=== PATIENT | female | born 1985 | race Caucasian/White ===

== ENCOUNTER 2020-12-25 19:27 | Emergency (ER) | payer OTHER, BC, MEDICAID, SELFPAY ==
--- NOTE | ~2020-12-25 | XR_ITS ---
EXAMINATION: XR FINGER, LEFT CLINICAL INFORMATION: Nail through finger COMPARISON: None TECHNIQUE: 3 views of the left ring finger including AP view of the hand FINDINGS: A nail noted overlying the proximal metaphysis of the distal phalanx of the ring finger. The bone is otherwise unremarkable. This likely extends to the bone. The DIP joint is uninvolved. There is soft tissue prominence distal to the nail. The remaining bones joints and soft tissues are unremarkable. A radiodense watch obscures evaluation of the distal radius and ulna and wrist XR/XR finger LT min 2V IMPRESSION: Radiopaque object which appears to reflect a nail overlies appears to extend through the proximal metaphysis of the distal phalanx of the ring finger.
[2020-12-25 19:32] VITALS: BP 159/81; PULSE 96; RESP 22; TEMP 37.3; O2SAT 95; BMI 41.1
--- NOTE | 2020-12-25 19:40 | ED.SKABFB ---
HPI - Skin/Abscess/Foreign Bdy General Chief complaint: Skin/Abscess/Foreign Body Stated complaint: foreign object in finger Time Seen by Provider: 12/25/20 19:38 Source: patient Mode of arrival: ambulatory Limitations: no limitations History of Present Illness HPI narrative: 35-year-old female presents with a nail that went through 4th left her finger. Nail gun accidentally discharged to nail and her hand was in front of it. Unknown when her last Tdap vaccine was given. Patient was unable to pull the nail out of her finger. She does not report any other symptoms at this time. MD complaint: foreign body Onset (ago): hour(s) (Within the hour arrival) Tetanus up to date: unsure Location: L hand (Fourth finger) Severity: severe Severity scale (1-10): 10 Quality: aching Relieving factors: none Exacerbating factors: palpation and movement Associated symptoms: denies other symptoms Related Data Previous Rx's Medication Instructions Recorded amoxicillin 875 mg-potassium 1 tab PO Q12H 10 Days #20 tab 12/25/20 clavulanate 125 mg tablet (Augmentin) Allergies Allergy/AdvReac Type Severity Reaction Status Date / Time codeine Allergy Chest Pain Verified 12/25/20 19:37 Review of Systems Review of Systems: Constitutional: No Fever, No Chills ENT/Mouth: No Ear Pain, No Hoarseness, No sore throat Eyes: No Eye Pain, No Swelling, No Redness, No Foreign Body Cardiovascular: No Chest Pain, No SOB Respiratory: No Cough, No Dyspnea Gastrointestinal: No Nausea, No Vomiting, No Diarrhea, No abdominal Pain Genitourinary: No Dysuria, No Hematuria Musculoskeletal: positive left 4th finger pain with nail through and through, No Myalgias, No Joint Swelling Skin: No Skin lacerations, No rash Neuro: No Weakness, No Numbness, No Paresthesias, No Loss of Consciousness, No Dizziness, No Headache Psych: No Anxiety/Panic, No Depression Heme/Lymph: no easy bruising, no Lymphadenopathy Endocrine: No Polyuria, No Polydipsia Yes all other systems are reviewed and are negative [facility]LY [facility] Past Medical History Attestation statement: The following information was validated with the patient. Source: old records reviewed Social History Social History Advance Directives: No Physical Exam Vital Signs: Vital Signs: Last Vital Signs Temp 99.2 F 12/25/20 19:32 Pulse 67 12/25/20 21:22 Resp 16 12/25/20 21:22 BP 146/80 H 12/25/20 21:22 Pulse Ox 98 12/25/20 21:22 Body Mass Index 41.1 Appearance: Alert. Oriented X3. No acute distress. Eyes: Pupils equal, round and reactive to light. ENT: Pharynx normal. Neck: Normal inspection. Neck supple. CVS: Normal heart rate and rhythm. Pulses normal. Respiratory: No respiratory distress. Breath sounds normal. Abdomen: Soft and nontender. Skin: Skin warm and dry. Normal skin color. Normal skin turgor. Extremities: Nail noted through the left 4th metacarpal. Full range of motion, swelling noted. Neuro: No motor deficit. No sensory deficit. Course Course Course Narrative: 35-year-old female presents with a nail through the tip of her 4th left finger. Digital block completed, I was able to cut the tip of the nail on the palmar aspect of the finger, I did pull the nail through the finger with a tool maker apprentice. X-rays did show after nail cut through the bone of the metatarsal. Will give amoxicillin p.o. for the next 10 days. Patient has full range of motion and brisk capillary refill status post nail removal. Was able to remove her wedding rings without difficulty. Patient will follow-up with primary care. MDM - Skin/Abscess/Foreign Bdy MDM Narrative Medical decision making narrative: Nail puncture through the finger Imaging Data Finger x-ray: Attestation: I personally reviewed and interpreted this imaging study as follows: Radiologist's impression: EXAMINATION: XR FINGER, LEFT CLINICAL INFORMATION: Nail through finger? COMPARISON: None? TECHNIQUE: 3 views of the left ring finger including AP view of the hand FINDINGS: A nail noted overlying the proximal metaphysis of the distal phalanx of the ring finger. The bone is otherwise unremarkable. This likely extends to the bone. The DIP joint is uninvolved. There is soft tissue prominence distal to the nail. ?The remaining bones joints and soft tissues are unremarkable. A radiodense watch obscures evaluation of the distal radius and ulna and wrist XR/XR finger LT min 2V IMPRESSION: Radiopaque object which appears to reflect a nail overlies appears to extend through the proximal metaphysis of the distal phalanx of the ring finger. Procedures Foreign Body Removal Site: left (Fourth finger) Description of foreign body: other (Nail) Sedation/Analgesia: other (Digital block) Technique: removal with forceps Confirmed by:: direct visualization Complications: none Neurovascular: normal capillary fill and no signs of compartment syndrome Nerve Block Nerve Block 1: Local Anesthetic: lidocaine 2% Amount of anesthesia used (mL): 4 Side: left Nerve Blocks: digital Procedure Successful: Yes Patient Tolerated Procedure: well and no complications Complications: none Discharge Plan Discharge Clinical Impression: Injury of finger by nail gun, Foreign body finger Patient Disposition: Home, Self-Care Instructions: Puncture Wound (ED) Additional Instructions: You were evaluated for nail gun injury. We were able to pull the nail out of her finger, however a nail went through the bone of the finger. Please take Augmentin twice a day for the next 10 days. Monitor for signs and symptoms of infection. If you were to develop any signs of infection please return to the emergency department immediately. We updated her Tdap vaccine today. Thank you for choosing this emergency department for evaluation. Please follow-up with primary care physician as needed. Return to the emergency department for any new, concerning, or worsening symptoms. Prescriptions: New amoxicillin-pot clavulanate [Augmentin] 875-125 mg tablet 1 tab PO Q12H 10 Days Qty: 20 RF: 0 Referrals: Mellisa Cabezas PA-C [Physician Collection Manager] - 2 days (Nail through ring finger) Interventions: ED Discharge Assessment Last Done: 12/25/20 21:22 Discharge Date/Time: 12/25/20 21:23
[2020-12-25] MEDS: Lidocaine HCl 2 % MPF 5 ML VIAL 10 ML SUBCUT (19:54)
[2020-12-25] MEDS: Amoxicillin/Potassium Clav 875 MG TABLET PO (20:11)
[2020-12-25] MEDS: Diphth,Pertus(ACell),Tet Adult 0.5 ML SYRINGE IM (20:11)
[2020-12-25 21:22] VITALS: BP 146/80; PULSE 67; RESP 16; O2SAT 98
== END 2020-12-25 21:23 | disposition home or self-care (01) ==
PROVIDERS: Emergency Provider Internal Medicine
DX: S61.245A Puncture wound with foreign body of left ring finger without damage to nail, initial encounter (principal); W45.0XXA Nail entering through skin, initial encounter; W29.4XXA Contact with nail gun, initial encounter; Y93.9 Activity, unspecified; Y92.9 Unspecified place or not applicable; Y99.9 Unspecified external cause status
CPT/HCPCS: 64450; 73140; 90471; 90715; 99283; 99284

== ENCOUNTER 2022-07-11 08:27 | Outpatient (REF) | payer OTHER, MEDICAID, SELFPAY ==
--- NOTE | ~2022-07-11 | MM_ITS ---
EXAMINATION: MM DIAGNOSTIC DIGITAL BREAST TOMOSYNTHESIS, BILATERAL US DIAGNOSTIC ULTRASOUND BREAST, RIGHT CLINICAL INFORMATION: 36-year-old with months history right breast pain. Palpable areas noted on clinical exam right breast. The lifetime risk of breast cancer based on the Tyrer-Cuzick Model is 15%. COMPARISON: Outside mammography: 01/05/2019 ([facility], [place], [place]). TECHNIQUE: Digital breast tomosynthesis is performed in both the craniocaudal and mediolateral oblique views along with computer-aided detection (CAD). Synthesized 2D images are generated from the tomosynthesis. Ultrasound right breast is targeted to the areas of clinical concern. Patient is able to point to the areas of symptoms at time of imaging. Grayscale imaging and color Doppler are performed without and with harmonics. FINDINGS: The breasts are almost entirely fatty (ACR BI-RADS breast composition Category a). Background stromal markings are stable. No developing density or architectural abnormality. There are no significant masses, abnormal calcifications, or other abnormalities. The axilla are unremarkable. Skin contours are smooth. There is no skin thickening or coarsening of the Trevor's ligaments. No significant changes. Ultrasound demonstrates no cystic or solid mass, architectural abnormality, or focal duct ectasia. No skin thickening or edema tracking in the soft tissue planes. Results are discussed with the patient at time of visit. MM/MM tomosynthesis diagnostic BI IMPRESSION: 1. No mammographic evidence of malignancy or inflammatory changes. 2. Unremarkable targeted right breast ultrasound. ASSESSMENT: BI-RADS 1: Negative RECOMMENDATION: 1. Patient should be managed based on the clinical impression. 2. Otherwise, routine annual screening mammography, beginning age 40, or earlier as clinical risk factors warrant. This patient's information was entered into a reminder system with a target due date for their next mammogram.
== END 2022-07-11 08:28 | disposition home or self-care (01) ==
LOC: HO.MAMMO 08:27
PROVIDERS: PCP Internal Medicine; Visit Provider Physician Assistant Medical
DX: N64.4 Mastodynia (principal)
CPT/HCPCS: 76642; 77062; 77066

== ENCOUNTER 2022-12-19 12:58 | Outpatient (AMB) | payer OTHER, MEDICAID, SELFPAY ==
--- NOTE | 2022-12-19 13:06 | MHC.PC.OV ---
Vital Signs 12/19/22 13:08 Height 5 ft 4 in Weight 247 lb BMI 42.4 BP 122/90 H Blood Pressure Location Rt brachial Position Sitting Pulse 72 Pulse Source Pulse Oximeter Pulse Oximetry (%) 97 Oxygen Delivery Method Room Air Intake Visit Reasons: annual Intake Note: Patient states she is over due for a pap. Allergies codeine Allergy (Verified 12/19/22 13:09) Chest Pain Tobacco use date assessed: 12/19/22 HPI annual HPI Details Pt presents for PE. PFSH Surgical History Hx of appendectomy S/P cholecystectomy Family History Father Hypertension High cholesterol Mother Hypertension Diabetes Paternal Grandfather Colon cancer Paternal Grandmother Kidney disease Maternal Grandmother Leukemia Maternal Aunt Breast cancer Ovarian cancer Maternal Aunt Breast cancer Brother Substance use disorder Social History Household Members Other:: , 2 children in college, exercise 2 x a week Housing: House Patient Tobacco Use Status: Former Tobacco user (10 years ago) e-Cigarette/Vaping Use: Never Used Current occupational status: employed Cognitive needs: No Hearing needs: No Vision needs: Yes Questionnaire Thrive Questionnaire Date Thrive assessed: 12/15/21 WILLIE-7 AMB Questionnaire WILLIE-7 Date WILLIE - 7 assessed: 12/15/21 Source: Developed by Drs. Minor Avalos, Kim Valentin, Alvaro De La Torre and colleagues, with an educational yuliya from [employer]. Review of Systems Const All systems reviewed & are unremarkable except as noted in HPI and below Reports no additional complaints Eyes Reports no additional complaints ENT Reports no additional complaints Card Reports no additional complaints Resp Reports no additional complaints GI Reports no additional complaints Reports no additional complaints Physical exam (Primary Care) Vital Signs: Last Vital Signs Pulse 72 12/19/22 13:08 BP 122/90 H 12/19/22 13:08 Pulse Ox 97 12/19/22 13:08 Oxygen Delivery Method Room Air 12/19/22 13:08 BMI result Body Mass Index 42.4 Tobacco/Smoking Status: Tobacco use Status Tobacco use date assessed 12/19/22 12/19/22 13:12 Patient Tobacco Use Status Former Tobacco user (12/19/22 13:12 years ago) e-Cigarette/Vaping Use Never Used 12/19/22 13:12 Thrive Assessment: Date of Thrive Assessment Date Thrive assessed 12/15/21 12/19/22 13:12 Const General: no acute distress HENMT Head: Yes normal to inspection Ears: hearing grossly normal bilaterally General nose exam: Normal external nose present Face and sinus: Yes normal facial exam Mouth: Normal oral and palatal mucosa present Throat: Yes posterior oropharynx normal Eyes General: appearance normal, both eyes and all related structures Neck Neck: Yes no lymphadenopathy and Yes supple Resp Effort & Inspection: normal respiratory effort Auscultation: clear to auscultation bilaterally Cardio Rhythm: regular rhythm Heart sounds: S1 normal heart sound present and S2 normal heart sound present GI Inspection: Yes normal to inspection Palpation (GI): Soft to palpation Percussion: Yes normal to percussion Auscultation: normal bowel sounds External Female Exam: normal external appearance Speculum Exam - Vagina: normal appearance of the vagina Speculum Exam - Cervix: normal appearance of the cervix Assessment and Plan Assessment & Plan (1) Annual physical exam: Code(s): Z00.00 - Encounter for general adult medical examination without abnormal findings Plan: WELL-BALANCED DIET REGULAR EXERCISE WEIGHT LOSS DISCUSSED THE PATIENT. SHE WILL HAVE A FASTING BLOOD WORK TODAY. PAP SMEAR WAS DONE TODAY Orders: Orders Comprehensive [place]. Panel Fast Today Z00.00 - Encounter for general adult medical examination without abnormal findings Lipid Panel Today Z00.00 - Encounter for general adult medical examination without abnormal findings TSH reflex Free T4 Today Z00.00 - Encounter for general adult medical examination without abnormal findings Complete Blood Count Auto Diff Today Z00.00 - Encounter for general adult medical examination without abnormal findings UA w Microscopic Today Z00.00 - Encounter for general adult medical examination without abnormal findings Hemoglobin A1c Today R73.9 - Hyperglycemia, unspecified Pap Smear Today Z00.00 - Encounter for general adult medical examination without abnormal findings Coding Level of Care Code Est Pt Prev Care 18-39y(42411) Diagnoses Annual physical exam Z00.00
[2022-12-19 13:08] VITALS: BP 122/90; PULSE 72; O2SAT 97; BMI 42.4
== END 2022-12-19 14:52 | disposition home or self-care (01) ==
PROVIDERS: Visit Provider Internal Medicine
DX: Z00.00 Encounter for general adult medical examination without abnormal findings (principal)
CPT/HCPCS: 99395

== ENCOUNTER 2022-12-19 14:10 | Outpatient (REF) | payer OTHER, MEDICAID, SELFPAY ==
[2022-12-19 16:49] LABS: Estimated Average Glucose 97 mg/dL
[2022-12-19 16:55] LABS: Appearance Urine Clear; Color Urine Yellow; Glucose Urine UA Negative (Negative); Leukocyte Esterase Urine Negative (Negative); Nitrite Urine Negative (Negative); PH 7.5 (5.0-9.0); Urine Blood Negative (Negative); Urine Ketones Negative (Negative); Urine Protein Negative (Neg-Trace)
[2022-12-19 17:00] LABS: Bacteria Urine None Seen (None Seen); Hyaline Casts Urine 0-2 /LPF (0-2); RBC Urine 0-2 /HPF (0-2); Squamous Epithelial Cell Urine 0-2 /HPF (0-2); WBC Urine 0-5 /HPF (0-5)
[2022-12-19 17:17] LABS: Alanine Aminotransferase 28 U/L (0-31); Albumin Level 4.5 g/dL (3.5-5.0); Alkaline Phosphatase 63 U/L (39-117); Anion Gap 16 (12-20); Aspartate Amino Transferase 27 U/L (5-31); Bilirubin Total 0.4 mg/dL (0.0-1.0); Blood Urea Nitrogen 5 mg/dL (9-16); Calcium 9.7 mg/dL (8.4-10.2); Carbon Dioxide 17 mmol/L (22-29); Chloride 111 mmol/L (96-108); Cholesterol 233 mg/dL; Estimated Glomerular Filt Rate > 60; Glucose Fasting 85 mg/dL (60-99); HDL Cholesterol 57 mg/dL; LDL Cholesterol Calculated 151 mg/dl; Sodium 140 mmol/L (135-145); Total Protein 7.7 g/dL (6.5-8.0); Triglycerides 128 mg/dL
[2022-12-19 17:53] LABS: Free T4 (Free Thyroxine) 0.92 ng/dL (0.71-1.85)
== END 2022-12-19 14:11 | disposition home or self-care (01) ==
LOC: HO.HMGCLDS 14:10
PROVIDERS: PCP Internal Medicine; Visit Provider Internal Medicine
DX: Z00.00 Encounter for general adult medical examination without abnormal findings (principal); R73.9 Hyperglycemia, unspecified
CPT/HCPCS: 36415; 80053; 80061; 81001; 83036; 84439; 84443

== ENCOUNTER 2022-12-19 15:14 | Outpatient (REF) | payer OTHER, MEDICAID, SELFPAY ==
[2022-12-26 06:34] LABS: HPV mRNA E6/E7 Not Detected (Not Detected)
== END 2022-12-19 15:15 | disposition home or self-care (01) ==
LOC: HO.LNP 15:14
PROVIDERS: Visit Provider Internal Medicine
DX: Z00.00 Encounter for general adult medical examination without abnormal findings (principal); R73.9 Hyperglycemia, unspecified
CPT/HCPCS: 87624; 88142

== ENCOUNTER 2023-12-31 12:51 | Outpatient (AMB) | payer OTHER, MEDICAID, SELFPAY ==
[2023-12-31 13:00] VITALS: BP 112/70; PULSE 86; O2SAT 98; BMI 42.6
--- NOTE | 2023-12-31 13:00 | MHC.PC.OV ---
Vital Signs 12/31/23 13:00 Height 5 ft 4 in Weight 248 lb BMI 42.6 BP 112/70 Blood Pressure Location Lt brachial Position Sitting Pulse 86 Pulse Source Pulse Oximeter Pulse Oximetry (%) 98 Oxygen Delivery Method Room Air Intake Visit Reasons: Annual PE Intake Note: Pt is here today for PE. Allergies codeine Allergy (Verified 12/31/23 13:20) Chest Pain Medication List - Last Reconciled 12/31/23 by Cheryl Smallwood MD multivitamin 1 tab PO DAILY Tobacco use date assessed: 12/31/23 Dental Screening Dental Screen Date: 12/31/23 Did you have a dental visit in the last 12 months?: Yes Did you have a dental problem in the last 6 months where you did not have access to dental care?: No Was dental information given to patient?: Patient has dentist HPI Annual PE HPI Details Pt presents for PE. Pt reports 5 days cough chest tightness sore throat body aches. She denies pleurisy fever chills sputum production PFSH Surgical History S/P cholecystectomy Hx of appendectomy Family History Father Hypertension High cholesterol Mother Hypertension Diabetes Paternal Grandfather Colon cancer Paternal Grandmother Kidney disease Maternal Grandmother Leukemia Maternal Aunt Breast cancer Ovarian cancer Maternal Aunt Breast cancer Brother Substance use disorder Social History Household Members Other:: , 2 children in college, exercise 2 x a week Housing: House Patient Tobacco Use Status: Former Tobacco user (10 years ago) e-Cigarette/Vaping Use: Never Used service: No Current occupational status: employed Cognitive needs: No Hearing needs: No Vision needs: Yes Questionnaire PHQ-9 Over the last 2 weeks, how often have you been bothered by any of the following problems? 1. Little interest or pleasure in doing things: not at all 2. Feeling down, depressed, or hopeless: not at all 3. Trouble falling or staying asleep, or sleeping too much: not at all 4. Feeling tired or having little energy: several days 5. Poor appetite or overeating: not at all 6. Feeling bad about yourself - or that you are a failure or have let yourself or your family down: not at all 7. Trouble concentrating on things, such as reading the newspaper or watching television: not at all 8. Moving or speaking so slowly that other people could have noticed. Or the opposite - being so fidgety or restless that you have been moving around a lot more than usual: not at all 9. Thoughts that you would be better off or of hurting yourself in some way: not at all Total score: 1 Depression Screening Interpretation: Negative Depression Screening Done: Yes 54407 - PHQ-9 Billing: Yes Source: Developed by Drs. Minor Avalos, Kim Valentin, Alvaro De La Torre and colleagues, with an educational yuliya from [employer] Thrive Questionnaire Date Thrive assessed: 12/31/23 I am a: Patient What is your living situation today?: I have a steady place to live Within the past 12 months, did the food you bought not last and you didn't have the money to get more?: I choose not to answer this question Within the past 12 months, did you worry whether your food would run out before you got money to buy more?: I choose not to answer this question Do you have trouble paying for medicines?: I choose not to answer this question Do you have trouble getting transportation to medical appointments?: No Do you have trouble paying your heating and electricity bill?: I choose not to answer this question Do you have trouble taking care of your child, family member or friend?: No Do you have trouble with day-to-day activities such as bathing, preparing meals, shopping, managing finances, etc.?: No Are you currently unemployed and looking for a job?: No Are you interested in more education?: No Please select the resources that you would like help with: Housing/Chcf Currently or been in a relationship where the following occur: No concerns reported THRIVE Score: 0 AUDIT C Alcohol Use Questionnaire (AUDIT-C) 1. How often do you have a drink containing alcohol?: 2-4 times a month 2. How many drinks containing alcohol do you have on a typical day when you are drinking?: 1 or 2 3. How often do you have six or more drinks on one occasion?: Less than monthly Total Score: 3 WILLIE-7 AMB Questionnaire WILLIE-7 Date WILLIE - 7 assessed: 12/31/23 Feeling nervous, anxious, or on edge: 1 = Several days Not being able to stop or control worryin = Not at all Worrying too much about different things: 0 = Not at all Trouble relaxin = Several days Being so restless that it is hard to sit still: 0 = Not at all Becoming easily annoyed or irritable: 0 = Not at all Feeling afraid as if something awful might happen: 0 = Not at all Total WILLIE-7 score (0-4 normal; 5-9 mild; 10-14 moderate; 15-21 severe): 2 Source: Developed by Drs. Minor Avalos, Kim Valentin, Alvaro De La Torre and colleagues, with an educational yuliya from [employer]. WILLIE-7 Assessment Billing WILLIE-7 Assessment Tool: WILLIE-7 Assessment 87681 Review of Systems Const All systems reviewed & are unremarkable except as noted in HPI and below Reports no additional complaints Eyes Reports no additional complaints ENT Reports no additional complaints Card Reports no additional complaints Resp Reports no additional complaints GI Reports no additional complaints Reports no additional complaints Physical exam (Primary Care) Vital Signs: Last Vital Signs Pulse 86 12/31/23 13:00 BP 112/70 12/31/23 13:00 Pulse Ox 98 12/31/23 13:00 Oxygen Delivery Method Room Air 12/31/23 13:00 BMI result Body Mass Index 42.6 Tobacco/Smoking Status: Tobacco use Status Tobacco use date assessed 12/31/23 12/31/23 13:01 Patient Tobacco Use Status Former Tobacco user (10 12/31/23 13:01 years ago) e-Cigarette/Vaping Use Never Used 12/31/23 13:01 PHQ-9: PHQ-9 Score PHQ-9: Total score 1 12/31/23 13:01 Depression Screening Interpretation: Negative Thrive Assessment: Date of Thrive Assessment Date Thrive assessed 12/31/23 12/31/23 13:01 Currently or been in a relationship where the following occur: No concerns reported Const General: no acute distress HENMT Head: Yes normal to inspection Ears: hearing grossly normal bilaterally Face and sinus: Yes normal facial exam Throat: Yes posterior oropharynx normal Eyes General: appearance normal, both eyes and all related structures Neck Neck: Yes no lymphadenopathy and Yes supple Resp Effort & Inspection: normal respiratory effort Auscultation: clear to auscultation bilaterally Cardio Rhythm: regular rhythm Heart sounds: S1 normal heart sound present and S2 normal heart sound present GI Inspection: Yes normal to inspection Palpation (GI): Soft to palpation Percussion: Yes normal to percussion Auscultation: normal bowel sounds Assessment and Plan Assessment & Plan (1) Annual physical exam: Code(s): Z00.00 - Encounter for general adult medical examination without abnormal findings Plan: Well-balanced diet regular exercise weight loss discussed with the patient. She will be referred for mammogram. Patient negative Pap smear last year (2) Hyperglycemia: Code(s): R73.9 - Hyperglycemia, unspecified Plan: ADA diet regular exercise discussed with the patient. (3) Hyperthyroidism: Code(s): E05.90 - Thyrotoxicosis, unspecified without thyrotoxic crisis or storm Plan: Check TSH (4) Dysplastic nevi: Comment: On hands and chest Code(s): D23.9 - Other benign neoplasm of skin, unspecified Plan: Referred to dermatology Orders: Orders Lipid Panel Today E05.90 - Thyrotoxicosis, unspecified without thyrotoxic crisis or storm, R73.9 - Hyperglycemia, unspecified, Z00.00 - Encounter for general adult medical examination without abnormal findings MM screening mammo BI Today Z12.31 - Encounter for screening mammogram for malignant neoplasm of breast Comprehensive [place]. Panel Fast Today E05.90 - Thyrotoxicosis, unspecified without thyrotoxic crisis or storm, R73.9 - Hyperglycemia, unspecified, Z00.00 - Encounter for general adult medical examination without abnormal findings Complete Blood Count Auto Diff Today E05.90 - Thyrotoxicosis, unspecified without thyrotoxic crisis or storm, R73.9 - Hyperglycemia, unspecified, Z00.00 - Encounter for general adult medical examination without abnormal findings TSH reflex Free T4 Today E05.90 - Thyrotoxicosis, unspecified without thyrotoxic crisis or storm, R73.9 - Hyperglycemia, unspecified, Z00.00 - Encounter for general adult medical examination without abnormal findings Triiodothyronine T3 Free Today E05.90 - Thyrotoxicosis, unspecified without thyrotoxic crisis or storm, R73.9 - Hyperglycemia, unspecified, Z00.00 - Encounter for general adult medical examination without abnormal findings Referrals Dermatology Referral D23.9 - Other benign neoplasm of skin, unspecified Coding Level of Care Code Est Pt Prev Care 40-64y([id number]) Diagnoses Annual physical exam Z00.00 Hyperglycemia R73.9 Hyperthyroidism E05.90 Dysplastic nevi D23.9 Additional Codes WILLIE-7 Assessment Billing - WILLIE-7 Assessment Tool: WILLIE-7 Assessment [id number] ([id number])
== END 2023-12-31 15:43 | disposition home or self-care (01) ==
PROVIDERS: PCP Internal Medicine; Visit Provider Internal Medicine
DX: Z00.00 Encounter for general adult medical examination without abnormal findings (principal); R73.9 Hyperglycemia, unspecified; E05.90 Thyrotoxicosis, unspecified without thyrotoxic crisis or storm; D23.9 Other benign neoplasm of skin, unspecified
CPT/HCPCS: 99396

== ENCOUNTER 2024-01-11 10:58 | Outpatient (REF) | payer OTHER, SELFPAY ==
--- NOTE | ~2024-01-11 | MM_ITS ---
EXAMINATION: MM SCREENING DIGITAL BREAST TOMOSYNTHESIS, BILATERAL CLINICAL INFORMATION: Screening. Asymptomatic. COMPARISON: Mammography: Comparison is made with available prior examinations. TECHNIQUE: Digital breast tomosynthesis is performed in both the craniocaudal and mediolateral oblique views along with computer-aided detection (CAD). Synthesized 2D images are generated from the tomosynthesis. FINDINGS: There are scattered areas of fibroglandular density (ACR BI-RADS breast composition Category b). There are no significant masses, abnormal calcifications, or other abnormalities. MM/MM tomosynthesis screening BI IMPRESSION: No mammographic evidence of malignancy. ASSESSMENT: BI-RADS BI-RADS 1 - Negative RECOMMENDATION: Routine annual mammography screening. 1 year F/U This examination should not preclude the clinical evaluation of a suspicious palpable abnormality. This patient's information was entered into a reminder system with a target due date for their next mammogram. Electronically signed by: Layla Murray DO 02/08/2024 09:26 AM EDT
== END 2024-01-11 10:59 | disposition home or self-care (01) ==
LOC: HO.MAMMO 10:58
PROVIDERS: PCP Internal Medicine; Visit Provider Internal Medicine
DX: Z12.31 Encounter for screening mammogram for malignant neoplasm of breast (principal)
CPT/HCPCS: 77063; 77067

== ENCOUNTER → 2024-01-11 11:15 | Outpatient (BNV) | payer OTHER, SELFPAY | PROVIDERS: PCP Internal Medicine; Visit Provider Internal Medicine | DX: Z12.31 Encounter for screening mammogram for malignant neoplasm of breast (principal) | CPT/HCPCS: 77063; 77067 ==

== ENCOUNTER 2024-02-11 13:42 | Outpatient (AMB) | payer OTHER, SELFPAY ==
--- NOTE | 2024-02-11 13:43 | AM.OFFWIN_ITS ---
Intake Vital Signs 02/11/24 13:45 Height 5 ft 4 in Weight 248 lb BMI 42.6 BP 134/90 H Blood Pressure Location Lt brachial Position Sitting Pulse 72 Pulse Source Pulse Oximeter Pulse Oximetry (%) 98 Oxygen Delivery Method Room Air Intake Visit Reasons: EP severe back pain Intake Note: Patient here for lower back pain, she states she was sitting at work and when she got us she got a sharp pain that comes and goes. She states the pain is now radiating numbness down the legs. she states she took old cyclobenzaprin which heled slightly. Patient Tobacco Use Status: Former Tobacco user (10 years ago) Allergies codeine Allergy (Verified 02/11/24 13:47) Chest Pain Do you need a note to return to daycare/school/sports/work: No HPI HPI Comments History of Present Illness Details Patient is a 38-year-old female complaining of 2 days of worsening low back pain with sharp shooting pain that goes through her buttocks down the backs of both legs. She denies any loss of control of her bladder or bowels or saddle paresthesias. She states the pain is worse with walking and better with sitting. She denies any injury to her low back. She has been taking 600 mg of ibuprofen every 6 hours with no improvement in her pain. She is also using heat packs with no improvement. [facility] Surgical History S/P cholecystectomy Hx of appendectomy Family History Father Hypertension High cholesterol Mother Hypertension Diabetes Paternal Grandfather Colon cancer Paternal Grandmother Kidney disease Maternal Grandmother Leukemia Maternal Aunt Breast cancer Ovarian cancer Maternal Aunt Breast cancer Brother Substance use disorder Social History Household Members Other:: , 2 children in college, exercise 2 x a week Housing: House Patient Tobacco Use Status: Former Tobacco user (10 years ago) e-Cigarette/Vaping Use: Never Used service: No Current occupational status: employed Cognitive needs: No Hearing needs: No Vision needs: Yes Review of Systems Const All systems reviewed & are unremarkable except as noted in HPI and below Physical Exam Vital Signs: Last Vital Signs Pulse 72 02/11/24 13:45 BP 134/90 H 02/11/24 13:45 Pulse Ox 98 02/11/24 13:45 Oxygen Delivery Method Room Air 02/11/24 13:45 BMI result Body Mass Index 42.6 Const General: cooperative, healthy appearing and comfortable Orientation/consciousness: patient oriented x3 HEENT Head: Yes normal to inspection and Yes normocephalic General nose exam: Normal external nose present Face and sinus: Yes normal facial exam Eyes General: appearance normal, both eyes and all related structures Resp Effort & Inspection: normal respiratory effort and able to speak in complete sentences General: Yes no CVA tenderness Back/Spine/Pelvis Back: no CVA tenderness Cervical Spine: cervical ROM normal and No Cervical spine tenderness Thoracic/Lumbar Spine: thoracic and lumbar spine normal to inspection, pain with thoraco-lumbar ROM, paraspinal muscle tenderness, No thoracic spinal tenderness, No lumbar spinal tenderness and No straight leg raise positive Neuro General: patient oriented x3 Extrem Other: Straight leg raise test negative on right; Straight leg raise test negative on left; Reflexes normal ankle and knee bilaterally; motor strength normal bilaterally Office Meds prednisone 20 mg tablet Performing Provider: Bernadine Ricketts PA-C Performing Location: [facility] Administered by: Bernadine Ricketts PA-C on 02/11/24 14:01 Dose Route Admin Location Dispensed Lot Number Expiration Date [facility] [employer] 40 mg PO 40 mg [id number] 07/10/25 91459-444-08 AHP Assessment & Plan Assessment & Plan (1) Low back pain with sciatica: Code(s): M54.40 - Lumbago with sciatica, unspecified side Qualifiers: Chronicity: acute Back pain laterality: bilateral Sciatica laterality: bilateral sciatica Qualified Code(s): M54.42 - Lumbago with sciatica, left side; M54.41 - Lumbago with sciatica, right side Plan: Gave patient 1st dose of 40mg prednisone in office, sent prescription for the remainder of the burst as well as a couple of muscle relaxers. Recommended using ice rest it on she should feel much better in a couple of days. Follow up with PCP if no improvement, also gave red flag warning signs and when to go to the emergency department. Plan See above Orders: Orders AMB Prednisone Adult Dose Today M54.40 - Lumbago with sciatica, unspecified side Medications: New cyclobenzaprine 5 mg PO Q8H PRN 10 tabs 0RF Muscle Spasm prednisone 40 mg (2 x 20 mg) PO DAILY 8 tabs 0RF Coding Level of Care Code Est Pt Level 4 (72415) Diagnoses Acute bilateral low back pain with bilateral sciatica M54.42; M54.41 Chronicity: acute Back pain laterality: bilateral Sciatica laterality: bilateral sciatica
[2024-02-11 13:45] VITALS: BP 134/90; PULSE 72; O2SAT 98; BMI 42.6
== END 2024-02-11 14:10 | disposition home or self-care (01) ==
PROVIDERS: PCP Internal Medicine; Visit Provider Physician Assistant
DX: M54.42 Lumbago with sciatica, left side (principal); M54.41 Lumbago with sciatica, right side; M54.40 Lumbago with sciatica, unspecified side

== ENCOUNTER → 2024-02-11 13:42 | Outpatient (BNVA) | payer OTHER, SELFPAY | PROVIDERS: PCP Internal Medicine | DX: M54.41 Lumbago with sciatica, right side (principal); M54.42 Lumbago with sciatica, left side ==

== ENCOUNTER 2024-02-26 12:35 | Outpatient (AMB) | payer OTHER, SELFPAY ==
[2024-02-26 12:52] VITALS: BP 122/80; PULSE 76; O2SAT 99; BMI 42.4
--- NOTE | 2024-02-26 12:52 | A.OFFPC_ITS ---
Vital Signs 02/26/24 12:52 Height 5 ft 4 in Weight 247 lb BMI 42.4 BP 122/80 Blood Pressure Location Lt brachial Position Sitting Pulse 76 Pulse Source Pulse Oximeter Pulse Oximetry (%) 99 Oxygen Delivery Method Room Air Intake Visit Reasons: Pain Management Intake Note: Pt is here today for a follow up visit after being seen in a walk in. Pt was put on prednisone and muscle relaxer for back pain. Allergies codeine Allergy (Verified 02/26/24 13:02) Chest Pain Medication List - Last Reconciled 02/26/24 by Cheryl Smallwood MD multivitamin 1 tab PO DAILY Tobacco use date assessed: 02/26/24 Dental Screening Dental Screen Date: 12/31/23 HPI Pain Management HPI Details Pt complaing of LBP radiating to RLE with numbness for 3 weeks, worse when standing and sitting for a long time. Pt has been taking 300 mg q 6 hrs with some relief. She denies weakness in extremities change in bowel or bladder habits PFSH Surgical History S/P cholecystectomy Hx of appendectomy Family History Father Hypertension High cholesterol Mother Hypertension Diabetes Paternal Grandfather Colon cancer Paternal Grandmother Kidney disease Maternal Grandmother Leukemia Maternal Aunt Breast cancer Ovarian cancer Maternal Aunt Breast cancer Brother Substance use disorder Social History Household Members Other:: , 2 children in college, exercise 2 x a week Housing: House Patient Tobacco Use Status: Former Tobacco user (10 years ago) e-Cigarette/Vaping Use: Never Used service: No Current occupational status: employed Cognitive needs: No Hearing needs: No Vision needs: Yes Questionnaire Thrive Questionnaire Date Thrive assessed: 12/28/23 I am a: Patient What is your living situation today?: I have a steady place to live Within the past 12 months, did the food you bought not last and you didn't have the money to get more?: I choose not to answer this question Within the past 12 months, did you worry whether your food would run out before you got money to buy more?: I choose not to answer this question Do you have trouble paying for medicines?: I choose not to answer this question Do you have trouble getting transportation to medical appointments?: No Do you have trouble paying your heating and electricity bill?: I choose not to answer this question Do you have trouble taking care of your child, family member or friend?: No Do you have trouble with day-to-day activities such as bathing, preparing meals, shopping, managing finances, etc.?: No Are you currently unemployed and looking for a job?: No Are you interested in more education?: No Please select the resources that you would like help with: None Currently or been in a relationship where the following occur: No concerns reported THRIVE Score: 0 WILLIE-7 AMB Questionnaire WILLIE-7 Date WILLIE - 7 assessed: 12/31/23 Source: Developed by Drs. Minor Avalos, Kim Valentin, Alvaro De La Torre and colleagues, with an educational yuliya from [employer]. Review of Systems Const All systems reviewed & are unremarkable except as noted in HPI and below Card Reports no additional complaints Resp Reports no additional complaints GI Reports no additional complaints Physical exam (Primary Care) Vital Signs: Last Vital Signs Pulse 76 02/26/24 12:52 BP 122/80 02/26/24 12:52 Pulse Ox 99 02/26/24 12:52 Oxygen Delivery Method Room Air 02/26/24 12:52 BMI result Body Mass Index 42.4 Tobacco/Smoking Status: Tobacco use Status Tobacco use date assessed 02/26/24 02/26/24 13:04 Patient Tobacco Use Status Former Tobacco user (02/26/24 12:52 years ago) e-Cigarette/Vaping Use Never Used 02/26/24 12:52 Thrive Assessment: Date of Thrive Assessment Date Thrive assessed 12/28/23 02/26/24 12:52 Currently or been in a relationship where the following occur: No concerns reported Const General: no acute distress Resp Auscultation: clear to auscultation bilaterally Cardio Rhythm: regular rhythm Heart sounds: S1 normal heart sound present and S2 normal heart sound present Back/Spine/Pelvis Other: Spinal and Paraspinal tenderness in the mid lumbar region, straight leg rising 40 degrees on the right 90 degrees under left, deep tendon reflexes 2+ bilate rally heel and toe walk intact bilaterally Coding Level of Care Code Est Pt Level 3 (80920) Diagnoses Acute bilateral low back pain with bilateral sciatica M54.42; M54.41 Chronicity: acute Back pain laterality: bilateral Sciatica laterality: bilateral sciatica Assessment & Plan Assessment & Plan (1) Low back pain with sciatica: Code(s): M54.40 - Lumbago with sciatica, unspecified side Category: Medical Qualifiers: Chronicity: acute Back pain laterality: bilateral Sciatica laterality: bilateral sciatica Qualified Code(s): M54.42 - Lumbago with sciatica, left side; M54.41 - Lumbago with sciatica, right side Plan: Check x-ray of lumbar spine, pt is referred to physical therapy, continue NSAIDs and baclofen p.r.n. Orders: Orders PT Evaluation and Treatment Today M54.41 - Lumbago with sciatica, right side, M54.42 - Lumbago with sciatica, left side XR lumbar spine 2-3V Today M54.41 - Lumbago with sciatica, right side, M54.42 - Lumbago with sciatica, left side Medications: New baclofen 10 mg PO BID 30 tabs 0RF
== END 2024-02-26 13:57 | disposition home or self-care (01) ==
PROVIDERS: PCP Internal Medicine; Visit Provider Internal Medicine
DX: M54.42 Lumbago with sciatica, left side (principal); M54.41 Lumbago with sciatica, right side

== ENCOUNTER → 2024-02-26 12:35 | Outpatient (BNVA) | payer OTHER, SELFPAY | PROVIDERS: PCP Internal Medicine; Visit Provider Internal Medicine ==

== ENCOUNTER 2024-02-26 14:00 | Outpatient (REF) | payer OTHER, SELFPAY ==
--- NOTE | ~2024-02-26 | XR_ITS ---
EXAMINATION: XR LUMBAR SPINE 3 VIEWS CLINICAL INFORMATION: Lumbago with sciatica, left side M54.42. COMPARISON: None available. TECHNIQUE: Three views of the lumbosacral spine. FINDINGS: Normal vertebral body alignment. The lumbar lordosis is maintained. No acute fracture or subluxation. Moderate loss of intervertebral disc height with degenerative endplate changes at L5-S1. More mild degenerative disc disease and endplate osteophytes at L4-L5. No concerning lytic or blastic osseous lesion. No abnormal soft tissue calcification. Right upper quadrant surgical clips. XR/XR lumbar spine 2-3V IMPRESSION: Moderate degenerative disc disease at L5-S1 with more mild degenerative disc disease at L4-L5. Electronically signed by: Ozzie Chiu MD 04/30/2024 10:42 AM CHARLES
== END 2024-02-26 14:01 | disposition home or self-care (01) ==
LOC: HO.HMGCX 14:00
PROVIDERS: PCP Internal Medicine; Visit Provider Internal Medicine
DX: M54.41 Lumbago with sciatica, right side (principal); M54.42 Lumbago with sciatica, left side
CPT/HCPCS: 72100

== ENCOUNTER 2024-10-09 14:05 | Outpatient (AMB) | payer OTHER, SELFPAY ==
--- OUTSIDE RECORDS SUMMARY | 2024-10-09 14:13 | XMS_ITS | Patient Health Record ---
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 Role Phone Kiersten Reddy Primary Care Provider Allergies Allergen (clinical drug ingredient) Drug/Non Drug Allergy documented on EMR Reaction Allergy Type Onset Date Status codeine Codeine chest pain, dyspnea Drug Allergy Active Reason For Referral No Information Medications Medication SIG (Take, Route, Frequency, Duration) Notes Start Date End Date Status Ativan 0.5 MG 1 tablet Orally Once a day prn for 15 days 02/15/2021 Active Propranolol HCl 10 MG 1 tablet Orally bi d for 30 day(s) 02/15/2021 Active Toprol XL 25 MG 1 tablet Orally Once a day for 30 day(s) 02/18/2020 Not-Taking Multi For Her - as directed Orally Active Immunizations Vaccine Route Administration Date Status Comme nts Flu Given Out of Office Unknown 03/25/2020 Administered [facility] Flu, Flulaval 57243 IM Intramuscular 03/23/2014 Administer ed Flu, Fluvirin IM Intramuscular 04/21/2016 Administered Hepatitis B Adult I Unknown 03/23/2014 Administered Hepatitis B Adult I IM Intramuscular 05/04/2014 Administer ed PPD ID Intradermal 10/30/2016 Administered PPD ID Intradermal 12/26/2017 Administered Tdap IM Intramuscular 04/30/2013 Administered Social History Tobacco Use: Social History Observation Description Date Details (start date - stop date) Former Smoker NA - NA Tobacco Use/Smoking Question Answer Notes Patient is a: former smoker How long has it been since you last smoked 5-10 years Problems Problem Type SNOMED Code ICD Code Onset Dates Problem Status W/U Status Risk Notes Problem 483993134 Annual physical exam (Z00.00) Active confirmed Problem 43846462 Vitamin D deficiency (E55.9) Active confirmed Problem 32237817 Palpitations (R00.2) Active confirmed Problem 1289364 Weight gain (R63.5) Active confirmed Problem 840926743 Physical exam (Z00.00) Active confirmed Problem 87557389 Dysuria (R30.0) Active confirmed Problem 228964971 Morbid obesity (E66.01) Active confirmed Problem 9175894 Gastritis (K29.70) Active confirmed Problem 890118231 Gastro-esophage al reflux disease without esophagitis (K21.9) Active confirmed Problem 247237693830214 Skin lesion of breast (N64.9) Active confirmed Problem 119231000 BMI 40.0-44.9, adult (Z68.41) Active confirmed Problem 942704707 Anxiety about health (F41.8) Active confirmed Problem 26215636 PVC (premature ventricular contraction) (I49.3) Active confirmed Problem 945438014 BMI 37.0-37.9, adult (Z68.37) Active confirmed Problem 590454490 Morbid obesity due to excess calories (E66.01) Active confirmed Problem 500733231 Migraine without aura and without status migrainosus, not intractable (G43.009) Active confirmed Problem 065806041 Obesity (BMI 35.0-39.9 without comorbidity) (E66.9) Active confirmed Problem Thyromegaly (8534686) Thyromegaly (E01.0) Active confirmed Plan Of Treatment Pending Test Test Name Order Date SCR PAP SMER; OBTAIN PREP&CONVY-LAB 04/20 SCR PAP SMER; OBTAIN PREP&CONVY-LAB 04/21 Urinalysis Done In Office 04/30/2013 COMMENT ([facility]) 10/01/2015 EKG 11/18/2019 EKG 02/15/2021 MAMMOGRAM SCREENING 12/20/2018 Future Test Test Name Order Date CMP([facility]) 12/13/2017 Lipid Profile ([facility]) 12/13/2017 Hemoglobin A1C([facility]) 12/13/2017 TSH([facility]) 12/13/2017 Vitamin D, 25 Hydroxy([facility]) 2017 CBC with Differential (AUTO) 12/13/2017 SLEEP STUDY HOME TEST 11/23/2019 CMP([facility]) 02/15/2021 Lipid Profile ([facility]) 02/15/2021 TSH([facility]) 02/15/2021 Vitamin D, 25 Hydroxy([facility]) 2020 CBC with Differential (AUTO) 02/15/2021 SLEEP STUDY IN-LAB DIAGNOSTIC PSG 2020 Insurance Providers Payer Name Payer Address Payer Phone Subscriber Number Group Number Insured Name Patient Relationship to Insured Coverage Start Date Coverage End Date [facility] [address] [place] [address] [id number] Alison Sanderson Self - patient is the insured 1 Medicaid [address] [place] [address] [phone] [id number] Alison Sanderson Self - patient is the insured [facility] [address] [place] [address] [id number] YASMIN SANDERSON Spouse - patient is the spouse of the insured 3 [facility] [address] [place] [address] [id number] Alison Sanderson Self - patient is the insured Medical (General) History Medical History History ICD Code Esophageal reflux 530.81 11/28/2019 Echocardiogram: L VEF 60-65%, no diastolic dysfunction, right ventricle normal in size and function. Surgical History Surgery Date(Month/Year) Removal of Fibroma OD (Dr. Todd velazquez) 01/11/2021 NEVUS RIGHT FACE 02/2004 [facility] Appendectomy
--- NOTE | 2024-10-09 15:19 | AM.OFFWIN_ITS ---
Intake Vital Signs 10/09/24 15:25 Weight 246 lb BP 126/80 Blood Pressure Location Lt brachial Position Sitting Pulse 64 Pulse Source Pulse Oximeter Temp 98.2 F Temp Source Oral Pulse Oximetry (%) 98 Oxygen Delivery Method Room Air Intake Visit Reasons: EP-lt ear infection, lt tonsil pain Intake Note: Patient here for bilat ear discomfort that started almost 4 days ago. Patient Tobacco Use Status: Former Tobacco user (10 years ago) Allergies codeine Allergy (Verified 10/09/24 15:41) Chest Pain Do you need a note to return to daycare/school/sports/work: No HPI HPI Comments History of Present Illness Details 38 y/o Female patient who [facility] clinic with c/o B/L Ear pain and pressure associated with Pain with swallowing x 1 week. She just returned from a Cruise - reports Ears have been bothering her mid-Air and feeling Popping . She does fly a lot but this time the pressure and Pain is different. Denies Fevers, chills, nausea or vomiting. Pt asking for refills on Steroid cream that she uses for eczema. [facility] Medical History (Updated 10/09/24 @ 16:28 by Sabrina Orta NP) Seasonal allergies Surgical History S/P cholecystectomy Hx of appendectomy Family History Father Hypertension High cholesterol Mother Hypertension Diabetes Paternal Grandfather Colon cancer Paternal Grandmother Kidney disease Maternal Grandmother Leukemia Maternal Aunt Breast cancer Ovarian cancer Maternal Aunt Breast cancer Brother Substance use disorder Social History Household Members Other:: , 2 children in college, exercise 2 x a week Housing: House Patient Tobacco Use Status: Former Tobacco user (10 years ago) e-Cigarette/Vaping Use: Never Used service: No Current occupational status: employed Cognitive needs: No Hearing needs: No Vision needs: Yes Review of Systems Const All systems reviewed & are unremarkable except as noted in HPI and below Physical Exam Vital Signs: Last Vital Signs Temp 98.2 F 10/09/24 15:25 Pulse 64 10/09/24 15:25 BP 126/80 10/09/24 15:25 Pulse Ox 98 10/09/24 15:25 Oxygen Delivery Method Room Air 10/09/24 15:25 Const General: no acute distress Orientation/consciousness: patient oriented x3 HEENT Head: Yes normocephalic Ears: external ears normal and TM abnormal bulging and with fluid behind the TM bilateral; not bullous, not perforated and not retracted General nose exam: Abnormal mucous membranes and turbinates present erythematous Face and sinus: Yes sinuses nontender Mouth: moist mucous membranes and Abnormal oral and palatal mucosa present erythematous Throat: Yes uvula midline, Yes abnormal tonsil (Enlarged Tonsils +2) and Yes postnasal drainage Resp Effort & Inspection: normal respiratory effort and able to speak in complete sentences Auscultation: clear to auscultation bilaterally, no crackles, no rales, no rhonchi and no wheezes Cardio Heart sounds: S1 normal heart sound present and S2 normal heart sound present Neuro General: patient oriented x3 Assessment & Plan Assessment & Plan (1) Seasonal allergies: Code(s): J30.2 - Other seasonal allergic rhinitis Plan: Probably Viral or seasonal allergies. Ordered Zyrtec and Flonase Refilled Triamcinolone cream. Medications: New cetirizine (Zyrtec) 10 mg PO DAILY 30 tabs 0RF J30.2 - Other seasonal allergic rhinitis fluticasone propionate 50 mcg/actuation (Flonase Allergy Relief) administer into each nostril 1 spray intranasal BID 16 grams 0RF J30.2 - Other seasonal allergic rhinitis triamcinolone acetonide 0.1% 1 appl topical DAILY 15 grams 0RF D23.9 - Other benign neoplasm of skin, unspecified Coding Level of Care Code Est Pt Level 4 (35138) Diagnoses Seasonal allergies J30.2 Time Spent (min) 20
[2024-10-09 15:25] VITALS: BP 126/80; PULSE 64; TEMP 36.8; O2SAT 98
== END 2024-10-09 16:33 | disposition home or self-care (01) ==
PROVIDERS: PCP Internal Medicine; Visit Provider Nurse Practitioner Family
DX: J30.2 Other seasonal allergic rhinitis (principal)

== ENCOUNTER → 2024-10-09 14:05 | Outpatient (BNVA) | payer OTHER, SELFPAY | PROVIDERS: PCP Internal Medicine; Visit Provider Nurse Practitioner Family ==

== ENCOUNTER 2024-12-24 13:41 | Outpatient (AMB) | payer OTHER, SELFPAY ==
[2024-12-24 14:02] VITALS: BP 124/78; PULSE 99; RESP 18; TEMP 37; O2SAT 98; BMI 42.2
--- NOTE | 2024-12-24 14:02 | MHC.PC.OV ---
Vital Signs 12/24/24 14:02 Height 5 ft 4 in Weight 246 lb BMI 42.2 BP 124/78 Blood Pressure Location Lt brachial Position Sitting Respiration 18 Pulse 99 Pulse Source Pulse Oximeter Temp 98.6 F Temp Source Oral Pulse Oximetry (%) 98 Oxygen Delivery Method Room Air Intake Visit Reasons: PE Intake Note: Pt is here today for PE. Allergies codeine Allergy (Verified 12/24/24 14:16) Chest Pain Medication List - Last Reconciled 12/24/24 by Cheryl Smallwood MD cetirizine 10 mg PO DAILY multivitamin 1 tab PO DAILY triamcinolone acetonide 0.1% 1 appl topical DAILY Tobacco use date assessed: 12/24/24 Dental Screening Dental Screen Date: 12/24/24 Did you have a dental visit in the last 12 months?: Yes Did you have a dental problem in the last 6 months where you did not have access to dental care?: No Was dental information given to patient?: Patient has dentist HPI PE HPI Details Pt presents for PE. Patient has been trying to decrease caloric intake, increasing physical activity for over 6 months trying to lose weight. She is interested in trying GLP 1 agonist to facilitate weight loss. [facility] Medical History (Updated 12/24/24 @ 15:12 by Cheryl Smallwood MD) Normal pelvic exam Overweight PVC's (premature ventricular contractions) Annual physical exam Hyperthyroidism Hyperglycemia Seasonal allergies Surgical History S/P cholecystectomy Hx of appendectomy Family History Father Hypertension High cholesterol Mother Hypertension Diabetes Paternal Grandfather Colon cancer Paternal Grandmother Kidney disease Maternal Grandmother Leukemia Maternal Aunt Breast cancer Ovarian cancer Maternal Aunt Breast cancer Brother Substance use disorder Social History Household Members Other:: , 2 children in college, exercise 2 x a week Housing: House Patient Tobacco Use Status: Former Tobacco user (10 years ago) e-Cigarette/Vaping Use: Never Used service: No Current occupational status: employed Cognitive needs: No Hearing needs: No Vision needs: Yes Questionnaire PHQ-9 Over the last 2 weeks, how often have you been bothered by any of the following problems? 1. Little interest or pleasure in doing things: not at all 2. Feeling down, depressed, or hopeless: not at all 3. Trouble falling or staying asleep, or sleeping too much: not at all 4. Feeling tired or having little energy: not at all 5. Poor appetite or overeating: not at all 6. Feeling bad about yourself - or that you are a failure or have let yourself or your family down: not at all 7. Trouble concentrating on things, such as reading the newspaper or watching television: not at all 8. Moving or speaking so slowly that other people could have noticed. Or the opposite - being so fidgety or restless that you have been moving around a lot more than usual: not at all 9. Thoughts that you would be better off or of hurting yourself in some way: not at all Total score: 0 Depression Screening Interpretation: Negative Depression Screening Done: Yes 10589 - PHQ-9 Billing: Yes Source: Developed by Drs. Minor Avalos, Kim Valentin, Alvaro De La Torre and colleagues, with an educational yuliya from [employer]. Thrive Questionnaire Date Thrive assessed: 12/24/24 I am a: Patient What is your living situation today?: I have a steady place to live Within the past 12 months, did the food you bought not last and you didn't have the money to get more?: Never true Within the past 12 months, did you worry whether your food would run out before you got money to buy more?: Never true Do you have trouble paying for medicines?: No Do you have trouble getting transportation to medical appointments?: No Do you have trouble paying your heating and electricity bill?: No Do you have trouble taking care of your child, family member or friend?: No Do you have trouble with day-to-day activities such as bathing, preparing meals, shopping, managing finances, etc.?: No Are you currently unemployed and looking for a job?: No Are you interested in more education?: No Please select the resources that you would like help with: None Currently or been in a relationship where the following occur: No concerns reported THRIVE Score: 0 AUDIT C Alcohol Use Questionnaire (AUDIT-C) 1. How often do you have a drink containing alcohol?: 2-3 times a week 2. How many drinks containing alcohol do you have on a typical day when you are drinking?: 1 or 2 3. How often do you have six or more drinks on one occasion?: Never Total Score: 3 WILLIE-7 AMB Questionnaire WILLIE-7 Date WILLIE - 7 assessed: 12/24/24 Feeling nervous, anxious, or on edge: 1 = Several days Not being able to stop or control worryin = Not at all Worrying too much about different things: 0 = Not at all Trouble relaxin = Several days Being so restless that it is hard to sit still: 0 = Not at all Becoming easily annoyed or irritable: 0 = Not at all Feeling afraid as if something awful might happen: 0 = Not at all Total WILLIE-7 score (0-4 normal; 5-9 mild; 10-14 moderate; 15-21 severe): 2 Source: Developed by Drs. Minor Avalos, Kim Valentin, Alvaro De La Torre and colleagues, with an educational yuliya from [employer]. WILLIE-7 Assessment Billing WILLIE-7 Assessment Tool: WILLIE-7 Assessment 56907 Review of Systems Const All systems reviewed & are unremarkable except as noted in HPI and below Reports no additional complaints Eyes Reports no additional complaints ENT Reports no additional complaints Card Reports no additional complaints Resp Reports no additional complaints GI Reports no additional complaints Reports no additional complaints Physical exam (Primary Care) Vital Signs: Last Vital Signs Temp 98.6 F 12/24/24 14:02 Pulse 99 12/24/24 14:02 Resp 18 12/24/24 14:02 BP 124/78 12/24/24 14:02 Pulse Ox 98 12/24/24 14:02 Oxygen Delivery Method Room Air 12/24/24 14:02 BMI result Body Mass Index 42.2 Tobacco/Smoking Status: Tobacco use Status Tobacco use date assessed 12/24/24 12/24/24 14:19 Patient Tobacco Use Status Former Tobacco user (12/24/24 14:02 years ago) e-Cigarette/Vaping Use Never Used 12/24/24 14:02 PHQ-9: PHQ-9 Score PHQ-9: Total score 0 12/24/24 14:31 Depression Screening Interpretation: Negative Thrive Assessment: Date of Thrive Assessment Date Thrive assessed 12/24/24 12/24/24 14:19 Currently or been in a relationship where the following occur: No concerns reported Const General: no acute distress HENMT Head: Yes normal to inspection Ears: hearing grossly normal bilaterally Face and sinus: Yes normal facial exam Mouth: Normal oral and palatal mucosa present Eyes General: appearance normal, both eyes and all related structures Neck Neck: Yes no lymphadenopathy and Yes supple Resp Effort & Inspection: normal respiratory effort Auscultation: clear to auscultation bilaterally Cardio Rhythm: regular rhythm Heart sounds: S1 normal heart sound present and S2 normal heart sound present GI Inspection: Yes normal to inspection Palpation (GI): Soft to palpation Percussion: Yes normal to percussion Auscultation: normal bowel sounds Coding Level of Care Code Est Pt Prev Care 40-64y(03223) Diagnoses Annual physical exam Z00.00 Overweight E66.3 Additional Codes WILLIE-7 Assessment Billing - WILLIE-7 Assessment Tool: WILLIE-7 Assessment 41178 ([id number]) PHQ-9 - 02969 - PHQ-9 Billing: Yes ([id number]) Assessment & Plan Assessment & Plan (1) Annual physical exam: Code(s): Z00.00 - Encounter for general adult medical examination without abnormal findings Category: Medical Plan: Well-balanced diet regular physical activity decreasing caloric intake and losing weight discussed with the patient. She will return for fasting blood work. Mammogram will be scheduled (2) Overweight: Comment: BMI 42.2 12/2024 Code(s): E66.3 - Overweight Category: Medical Plan: Decreasing caloric intake increasing physical activity and weight loss discussed with the patient. She is going to check with her insurance coverage for GLP 1 agonist
--- OUTSIDE RECORDS SUMMARY | 2024-12-24 14:09 | XMS_ITS | Patient Health Record ---
Author Organization [facility] Address [address] [place] [address] Care Team Providers Care Dental Financial Coordinator Name Role Phone Kiersten Reddy Primary Care Provider Allergies Allergen (clinical drug ingredient) Drug/Non Drug Allergy documented on EMR Reaction Allergy Type Onset Date Status codeine Codeine chest pain, dyspnea Drug Allergy Active Reason For Referral No Information Medications Medication SIG (Take, Route, Frequency, Duration) Notes Start Date End Date Status Ativan 0.5 MG 1 tablet Orally Once a day prn; Duration: 15 days 02/15/2021 Active Propranolol HCl 10 MG 1 tablet Orally bi d; Duration: 30 day(s) 02/15/2021 Active Toprol XL 25 MG 1 tablet Orally Once a day; Duration: 30 day(s) 02/18/2020 Not-Amandeep ing Multi For Her - as directed Orally Active Immunizations Vaccine Route Administration Date Status Comme nts Flu Given Out of Office Unknown 03/25/2020 [facility]ered [facility] Flu, Flulaval 65108 IM Intramuscular 03/23/2014 Administer ed Flu, Fluvirin [...] Problem Status W/U Status Risk Notes Problem Annual health maintenance examination (65301009) Annual physical exam (Z00.00) Active confirmed Problem Vitamin D deficiency (07876583) Vitamin D deficiency (E55.9) Active confirmed Problem Palpitations (21338925) Palpitations (R00.2) Active confirmed Problem Weight gain (140481796) Weight gain (R63.5) Active confirmed Problem Physical examination, complete (58549944) Physical exam (Z00.00) Active confirmed Problem Dysuria (51532971) Dysuria (R30.0) Active confirmed Problem Morbid obesity (086450300) Morbid obesity (E66.01) Active confirmed Problem Gastritis (6636467) Gastritis (K29.70) Active confirmed Problem Gastro-esophagea l reflux disease without esophagitis (400685944) Gastro-esophagea l reflux disease without esophagitis (K21.9) Active confirmed Problem Disorder of breast (18901810) Skin lesion of breast (N64.9) Active confirmed Problem Body mass index 40+ - morbidly obese (763674509) BMI 40.0-44.9, adult (Z68.41) Active confirmed Problem Anxiety about health (104602875) Anxiety about health (F41.8) Active confirmed Problem 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) PVC (premature ventricular contraction) (I49.3) Active confirmed Problem Obese class II (652808705260022 ) BMI 37.0-37.9, adult (Z68.37) Active confirmed Problem Morbid obesity (805535388) Morbid obesity due to excess calories (E66.01) Active confirmed Problem Migraine without aura, not refractory (802577918) Migraine without aura and without status migrainosus, not intractable (G43.009) Active confirmed Problem Obesity (787815131) Obesity (BMI 35.0-39.9 without comorbidity) (E66.9) Active confirmed Problem Thyromegaly (7773439) Thyromegaly (E01.0) Active confirmed Plan Of Treatment Pending Test Test Name Order Date SCR PAP SMER; OBTAIN PREP&CONVY-LAB 04/21 SCR PAP SMER; OBTAIN PREP&CONVY-LAB 04/20 Urinalysis Done In Office 04/30/2013 COMMENT ([facility]) 10/01/2015 EKG 02/15/2021 EKG 11/18/2019 MAMMOGRAM SCREENING 12/20/2018 Future Test Test Name [...] Insured Coverage Start Date Coverage End Date [facility] [address] [place] [address] [id number] Alison Sanderson Self - patient is the insured 1 Medicaid [address] [place] [address] [id number] Alison Sanderson Self - patient is the insured [facility] [address] [place] [address] [id number] YASMIN SANDERSON Spouse - patient is the spouse of the insured [facility] [address] [address] [id number] Alison Sanderson Self - patient is the insured Medical (General) History Medical History History ICD Code Esophageal reflux 530.81 11/28/2019 Echocardiogram: L VEF 60-65%, no diastolic dysfunction, right ventricle normal in size and function. Surgical History Surgery Date(Month/Year) Removal of Fibroma OD (Dr. Todd velazquez) 01/11/2021 NEVUS RIGHT FACE 02/2004 [facility] Appendectomy
== END 2024-12-24 15:08 | disposition home or self-care (01) ==
LOC: HO.HMCC 13:42
PROVIDERS: PCP Internal Medicine; Visit Provider Internal Medicine
DX: Z00.00 Encounter for general adult medical examination without abnormal findings (principal); E66.3 Overweight

== ENCOUNTER → 2024-12-24 13:41 | Outpatient (BNVA) | payer OTHER, SELFPAY | PROVIDERS: PCP Internal Medicine; Visit Provider Internal Medicine | DX: Z00.00 Encounter for general adult medical examination without abnormal findings (principal); E66.3 Overweight; Z68.41 Body mass index [BMI] 40.0-44.9, adult | CPT/HCPCS: 96127 ==

== ENCOUNTER 2025-01-14 11:02 | Outpatient (REF) | payer OTHER, SELFPAY ==
--- OUTSIDE RECORDS SUMMARY | 2025-01-14 11:57 | XMS_ITS | Patient Health Record ---
Author Organization [facility] Address [address] [place] [address] Care Team Providers Care Orchid Hand Name Role Phone Kiersten Reddy Primary Care [...] Office Unknown 03/25/2020 Administered [facility] Flu, Flulaval 25299 IM Intramuscular 03/23/2014 Administer ed Flu, Fluvirin [...] Risk Notes Problem Annual health maintenance examination (39540929) Annual physical exam (Z00.00) Active confirmed Problem Vitamin D deficiency (50306375) Vitamin D deficiency (E55.9) Active confirmed Problem Palpitations (67846046) Palpitations (R00.2) Active confirmed Problem Weight gain (633175237) Weight gain (R63.5) Active confirmed Problem Physical examination, complete (55385334) Physical exam (Z00.00) Active confirmed Problem Dysuria (73873442) Dysuria (R30.0) Active confirmed Problem Morbid obesity (576962404) Morbid obesity (E66.01) Active confirmed Problem Gastritis (8997325) Gastritis (K29.70) Active confirmed Problem Gastro-esophagea l reflux disease without esophagitis (948787951) Gastro-esophagea l reflux disease without esophagitis (K21.9) Active confirmed Problem Disorder of breast (99700912) Skin lesion of breast (N64.9) Active confirmed Problem Body mass index 40+ - morbidly obese (757043992) BMI 40.0-44.9, adult (Z68.41) Active confirmed Problem Anxiety about health (337641454) Anxiety about health (F41.8) Active confirmed Problem Ventricular premature complex (disorder) (997736512) PVC (premature ventricular contraction) (I49.3) Active confirmed Problem Obese class II (999483586985484 ) BMI 37.0-37.9, adult (Z68.37) Active confirmed Problem Morbid obesity (486359286) Morbid obesity due to excess calories (E66.01) Active confirmed Problem Migraine without aura, not refractory (835205089) Migraine without aura and without status migrainosus, not intractable (G43.009) Active confirmed Problem Obesity (702244847) Obesity (BMI 35.0-39.9 without comorbidity) (E66.9) Active confirmed Problem Thyromegaly (0620126) Thyromegaly (E01.0) Active confirmed Plan Of Treatment [...] Insured Coverage Start Date Coverage End Date [facility] [address] [place] [address] [id number] Alison Sanderson Self - patient is the insured 1 Medicaid [address] [place] [address] [id number] Alison Sanderson Self - patient is the insured [facility] [address] [place] [address] [id number] YASMIN SANDERSON Spouse - patient is the spouse of the insured 3 [facility] [address] [address] [id number] Alison Sanderson Self - patient is the insured Medical (General) History Medical History History ICD Code Esophageal reflux 530.81 11/28/2019 Echocardiogram: L VEF 60-65%, no diastolic dysfunction, right ventricle normal in size and function. Surgical History Surgery Date(Month/Year) Removal of Fibroma OD (Dr. Todd velazquez) 01/11/2021 NEVUS RIGHT FACE 02/2004 [facility] Appendectomy
[2025-01-14 13:50] LABS: MANUAL DIFF FLAG NO
[2025-01-14 13:55] LABS: Appearance Urine Clear; Glucose Urine UA Negative (Negative); PH 6.5 (5.0-9.0); Specific Gravity - Urine 1.020 (1.005-1.025); UMIC TRIGGER UA YES
[2025-01-14 14:04] LABS: Hematocrit 39.9 % (37.0-47.0); Hemoglobin 13.1 g/dl (12.0-16.0); Imm Gran Abs Auto 0.01 X10*3/uL (0.00-0.03); Imm Gran Pct Auto 0.1 % (0.0-0.4); Lymphocytes Absolute Auto 2.3 X10*3/uL (1.2-4.9); Mean Corpuscular HGB Conc 32.8 g/dl (31.0-35.0); Mean Corpuscular Hemoglobin 27.7 pg (27.0-33.0); Mean Corpuscular Volume 84.4 fL (80.0-98.0); NRBC Abs Auto 0.000 X10*3/uL (0.0-0.012); NRBC Pct Auto 0.0 /100WBC (0.0-0.2); Platelet Count 232 X10*3/uL (160-400); Red Blood Count 4.73 X10*6/uL (4.20-5.50); White Blood Count 7.4 X10*3/uL (4.8-10.8)
[2025-01-14 14:30] LABS: Alanine Aminotransferase 27 U/L (0-31); Albumin Level 4.6 g/dL (3.5-5.0); Alkaline Phosphatase 56 U/L (39-117); Anion Gap 11 (12-20); Aspartate Amino Transferase 26 U/L (5-31); Blood Urea Nitrogen 9 mg/dL (9-16); Calcium 9.2 mg/dL (8.4-10.2); Carbon Dioxide 24 mmol/L (22-29); Chloride 108 mmol/L (96-108); Cholesterol 206 mg/dL (<200); Estimated Glomerular Filt Rate > 60; HDL Cholesterol 49 mg/dL (>40); Potassium 4.3 mmol/L (3.3-5.1); Sodium 139 mmol/L (135-145); Total Protein 7.3 g/dL (6.5-8.0); Triglycerides 141 mg/dL (<150)
[2025-01-14 15:11] LABS: Folate 7.1 ng/mL (> or = 4.0); Vitamin B12 262 pg/mL (200-900)
== END 2025-01-14 11:03 | disposition home or self-care (01) ==
LOC: HO.HMGCLDS 11:02
PROVIDERS: PCP Internal Medicine; Visit Provider Internal Medicine
DX: Z00.00 Encounter for general adult medical examination without abnormal findings (principal); E05.90 Thyrotoxicosis, unspecified without thyrotoxic crisis or storm; E66.3 Overweight; R73.9 Hyperglycemia, unspecified
CPT/HCPCS: 36415; 80053; 80061; 81001; 82607; 82746; 84443; 85025

== ENCOUNTER 2025-02-09 14:17 | Outpatient (REF) | payer OTHER, SELFPAY ==
[2025-02-09 16:14] LABS: Appearance Urine Clear; Glucose Urine UA Negative (Negative); PH 6.0 (5.0-9.0); Specific Gravity - Urine <= 1.005 (1.005-1.025)
== END 2025-02-09 14:18 | disposition home or self-care (01) ==
LOC: HO.HMGCLDS 14:17
PROVIDERS: PCP Internal Medicine; Visit Provider Internal Medicine
DX: R31.29 Other microscopic hematuria (principal)
CPT/HCPCS: 81001; 87086

== ENCOUNTER 2025-02-19 14:02 | Outpatient (REF) | payer OTHER, SELFPAY ==
--- OUTSIDE RECORDS SUMMARY | 2025-02-19 15:41 | XMS_ITS | Patient Health Record ---
Author Organization [facility] Address [address] [place] [address] Care Team Providers Care Clinical Data Management Director Name Role Phone Kiersten Reddy Primary Care [...] Office Unknown 03/25/2020 [facility] Flu, Flulaval 57176 IM Intramuscular 03/23/2014 Administer ed Flu, Fluvirin [...] Risk Notes Problem Annual health maintenance examination (94409366) Annual physical exam (Z00.00) Active confirmed Problem Vitamin D deficiency (71247624) Vitamin D deficiency (E55.9) Active confirmed Problem Palpitations (22020611) Palpitations (R00.2) Active confirmed Problem Weight gain (937383804) Weight gain (R63.5) Active confirmed Problem Physical examination, complete (15414728) Physical exam (Z00.00) Active confirmed Problem Dysuria (02981418) Dysuria (R30.0) Active confirmed Problem Morbid obesity (420147547) Morbid obesity (E66.01) Active confirmed Problem Gastritis (5294455) Gastritis (K29.70) Active confirmed Problem Gastro-esophagea l reflux disease without esophagitis (706382719) Gastro-esophagea l reflux disease without esophagitis (K21.9) Active confirmed Problem Disorder of breast (70346828) Skin lesion of breast (N64.9) Active confirmed Problem Body mass index 40+ - morbidly obese (447297312) BMI 40.0-44.9, adult (Z68.41) Active confirmed Problem Anxiety about health (987013637) Anxiety about health (F41.8) Active confirmed Problem Ventricular premature complex (disorder) (179949587) PVC (premature ventricular contraction) (I49.3) Active confirmed Problem Obese class II (305232762149624 ) BMI 37.0-37.9, adult (Z68.37) Active confirmed Problem Morbid obesity (998332584) Morbid obesity due to excess calories (E66.01) Active confirmed Problem Migraine without aura, not refractory (659381078) Migraine without aura and without status migrainosus, not intractable (G43.009) Active confirmed Problem Obesity (443800022) Obesity (BMI 35.0-39.9 without comorbidity) (E66.9) Active confirmed Problem Thyromegaly (4923505) Thyromegaly (E01.0) Active confirmed Plan Of Treatment [...] Insured Coverage Start Date Coverage End Date [facility] [address] [place] [address] [id number] Alison Sanderson Self - patient is the insured 1 Medicaid [address] [place] [address] [id number] Alison Sanderson Self - patient is the insured [facility] [address] [place] [address] [id number] YASMIN SANDERSON Spouse - patient is the spouse of the insured 3 [facility] [address] [address] [id number] Alison Sanderson Self - patient is the insured Medical (General) History Medical History History ICD Code Esophageal reflux 530.81 11/28/2019 Echocardiogram: L VEF 60-65%, no diastolic dysfunction, right ventricle normal in size and function. Surgical History Surgery Date(Month/Year) Removal of Fibroma OD (Dr. Todd velazquez) 01/11/2021 NEVUS RIGHT FACE 02/2004 [facility] Appendectomy
== END 2025-02-19 14:03 | disposition home or self-care (01) ==
LOC: HO.MAMMO 14:02
PROVIDERS: PCP Internal Medicine; Visit Provider Internal Medicine
DX: Z12.31 Encounter for screening mammogram for malignant neoplasm of breast (principal)
CPT/HCPCS: 77063; 77067

== ENCOUNTER → 2025-02-19 14:45 | Outpatient (BNV) | payer OTHER, SELFPAY | PROVIDERS: PCP Internal Medicine; Visit Provider Internal Medicine | DX: Z12.31 Encounter for screening mammogram for malignant neoplasm of breast (principal) | CPT/HCPCS: 77063; 77067 ==

== ENCOUNTER 2025-02-23 10:39 | Outpatient (AMB) | payer OTHER, SELFPAY ==
[2025-02-23 10:56] VITALS: BP 110/74; PULSE 97; RESP 18; TEMP 36.9; O2SAT 96; BMI 41.4
--- NOTE | 2025-02-23 10:56 | MHC.PC.OV ---
Vital Signs 02/23/25 10:56 Height 5 ft 4 in Weight 241 lb BMI 41.4 BP 110/74 Blood Pressure Location Lt brachial Position Sitting Respiration 18 Pulse 97 Pulse Source Pulse Oximeter Temp 98.4 F Temp Source Oral Pulse Oximetry (%) 96 Oxygen Delivery Method Room Air Intake Visit Reasons: 3 months follow up Intake Note: Pt is here today for 3 months follow up visit on weight medication. Allergies codeine Allergy (Verified 02/23/25 10:59) Chest Pain Medication List - Last Reconciled 02/23/25 by Cheryl Smallwood MD cetirizine 10 mg PO DAILY multivitamin 1 tab PO DAILY triamcinolone acetonide 0.1% 1 appl topical DAILY Wegovy (semaglutide (weight loss)) 0.5 mg (0.5 mL) subcut QWEEK NS Tobacco use date assessed: 12/24/24 Dental Screening Dental Screen Date: 12/24/24 HPI 3 months follow up HPI Details Patient presents for the follow-up of obesity. She has been taking Wegovy for 3 months and lost 5 lb. Patient reports some constipation improved with increasing fiber and fluid intake. [facility] Medical History Normal pelvic exam Overweight PVC's (premature ventricular contractions) Annual physical exam Hyperthyroidism Hyperglycemia Seasonal allergies Surgical History S/P cholecystectomy Hx of appendectomy Family History Father Hypertension High cholesterol Mother Hypertension Diabetes Paternal Grandfather Colon cancer Paternal Grandmother Kidney disease Maternal Grandmother Leukemia Maternal Aunt Breast cancer Ovarian cancer Maternal Aunt Breast cancer Brother Substance use disorder Social History Household Members Other:: , 2 children in college, exercise 2 x a week Housing: House Patient Tobacco Use Status: Former Tobacco user (10 years ago) e-Cigarette/Vaping Use: Never Used service: No Current occupational status: employed Cognitive needs: No Hearing needs: No Vision needs: Yes Questionnaire PHQ-9 Over the last 2 weeks, how often have you been bothered by any of the following problems? 1. Little interest or pleasure in doing things: not at all 2. Feeling down, depressed, or hopeless: not at all 3. Trouble falling or staying asleep, or sleeping too much: not at all 4. Feeling tired or having little energy: not at all 5. Poor appetite or overeating: not at all 6. Feeling bad about yourself - or that you are a failure or have let yourself or your family down: not at all 7. Trouble concentrating on things, such as reading the newspaper or watching television: not at all 8. Moving or speaking so slowly that other people could have noticed. Or the opposite - being so fidgety or restless that you have been moving around a lot more than usual: not at all 9. Thoughts that you would be better off or of hurting yourself in some way: not at all Total score: 0 Depression Screening Interpretation: Negative Depression Screening Done: Yes Source: Developed by Drs. Minor Avalos, Kim Valentin, Alvaro De La Torre and colleagues, with an educational yuliya from [employer]. Thrive Questionnaire Date Thrive assessed: 12/21/24 I am a: Patient What is your living situation today?: I have a steady place to live Within the past 12 months, did the food you bought not last and you didn't have the money to get more?: Never true Within the past 12 months, did you worry whether your food would run out before you got money to buy more?: Never true Do you have trouble paying for medicines?: No Do you have trouble getting transportation to medical appointments?: No Do you have trouble paying your heating and electricity bill?: No Do you have trouble taking care of your child, family member or friend?: No Do you have trouble with day-to-day activities such as bathing, preparing meals, shopping, managing finances, etc.?: No Are you currently unemployed and looking for a job?: No Are you interested in more education?: No Please select the resources that you would like help with: None Currently or been in a relationship where the following occur: No concerns reported THRIVE Score: 0 WILLIE-7 AMB Questionnaire WILLIE-7 Date WILLIE - 7 assessed: 12/24/24 Feeling nervous, anxious, or on edge: 1 = Several days Not being able to stop or control worryin = Not at all Worrying too much about different things: 0 = Not at all Trouble relaxin = Several days Being so restless that it is hard to sit still: 0 = Not at all Becoming easily annoyed or irritable: 0 = Not at all Feeling afraid as if something awful might happen: 0 = Not at all Total WILLIE-7 score (0-4 normal; 5-9 mild; 10-14 moderate; 15-21 severe): 2 Source: Developed by Drs. Minor Avalos, Kim Valentin, Alvaro De La Torre and colleagues, with an educational yuliya from [employer]. Review of Systems Const All systems reviewed & are unremarkable except as noted in HPI and below ENT Reports no additional complaints Card Reports no additional complaints Resp Reports no additional complaints GI Reports no additional complaints Reports no additional complaints Physical exam (Primary Care) Vital Signs: Last Vital Signs Temp 98.4 F 02/23/25 10:56 Pulse 97 02/23/25 10:56 Resp 18 02/23/25 10:56 BP 110/74 02/23/25 10:56 Pulse Ox 96 02/23/25 10:56 Oxygen Delivery Method Room Air 02/23/25 10:56 BMI result Body Mass Index 41.4 Tobacco/Smoking Status: Tobacco use Status Tobacco use date assessed 12/24/24 02/23/25 10:57 Patient Tobacco Use Status Former Tobacco user (10 02/23/25 10:57 years ago) e-Cigarette/Vaping Use Never Used 02/23/25 10:57 PHQ-9: PHQ-9 Score PHQ-9: Total score 0 02/23/25 11:03 Depression Screening Interpretation: Negative Thrive Assessment: Date of Thrive Assessment Date Thrive assessed 12/21/24 02/23/25 10:57 Currently or been in a relationship where the following occur: No concerns reported Const General: no acute distress HENMT Head: Yes normal to inspection Neck Neck: Yes supple Resp Effort & Inspection: normal respiratory effort Auscultation: clear to auscultation bilaterally Cardio Rhythm: regular rhythm Heart sounds: S1 normal heart sound present and S2 normal heart sound present Coding Level of Care Code Est Pt Level 3 (76889) Diagnoses Overweight E66.3 Assessment & Plan Assessment & Plan (1) Overweight: Comment: BMI 42.2 12/2024 Code(s): E66.3 - Overweight Category: Medical Plan: Patient will continue to decrease caloric intake increase physical activity and will continue Wegovy 0.5 mg for 2 months. Patient will report any side effects and the dose can be increasing 2 months Medications: Refilled triamcinolone acetonide 0.1% 1 appl topical DAILY 15 grams 1RF D23.9 - Other benign neoplasm of skin, unspecified
--- OUTSIDE RECORDS SUMMARY | 2025-02-23 12:43 | XMS_ITS | Patient Health Record ---
Author Organization [facility] Address [address] [place] [address] Care Team Providers Care Marketing Operations Specialist Name Role Phone Kiersten Reddy Primary Care [...] Office Unknown 03/25/2020 Administered [facility] Flu, Flulaval [id number] IM Intramuscular 03/23/2014 Administer ed Flu, Fluvirin [...] Risk Notes Problem Annual health maintenance examination (14275991) Annual physical exam (Z00.00) Active confirmed Problem Vitamin D deficiency (84423485) Vitamin D deficiency (E55.9) Active confirmed Problem Palpitations (03949522) Palpitations (R00.2) Active confirmed Problem Weight gain (422528193) Weight gain (R63.5) Active confirmed Problem Physical examination, complete (69953164) Physical exam (Z00.00) Active confirmed Problem Dysuria (31100551) Dysuria (R30.0) Active confirmed Problem Morbid obesity (449489400) Morbid obesity (E66.01) Active confirmed Problem Gastritis (9722490) Gastritis (K29.70) Active confirmed Problem Gastro-esophagea l reflux disease without esophagitis (391556674) Gastro-esophagea l reflux disease without esophagitis (K21.9) Active confirmed Problem Disorder of breast (45071534) Skin lesion of breast (N64.9) Active confirmed Problem Body mass index 40+ - morbidly obese (786703948) BMI 40.0-44.9, adult (Z68.41) Active confirmed Problem Anxiety about health (138566465) Anxiety about health (F41.8) Active confirmed Problem 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) PVC (premature ventricular contraction) (I49.3) Active confirmed Problem Obese class II (314040839225431 ) BMI 37.0-37.9, adult (Z68.37) Active confirmed Problem Morbid obesity (600165290) Morbid obesity due to excess calories (E66.01) Active confirmed Problem Migraine without aura, not refractory (151115939) Migraine without aura and without status migrainosus, not intractable (G43.009) Active confirmed Problem Obesity (245215766) Obesity (BMI 35.0-39.9 without comorbidity) (E66.9) Active confirmed Problem Thyromegaly (9018267) Thyromegaly (E01.0) Active confirmed Plan Of Treatment [...] Insured Coverage Start Date Coverage End Date [facility] [address] [place] [address] [id number] Alison Sanderson Self - patient is the insured 1 Medicaid [address] [place] [address] [id number] Alison Sanderson Self - patient is the insured [facility] [address] [place] [address] [id number] YASMIN SANDERSON Spouse - patient is the spouse of the insured 3 [facility] [address] [address] [id number] Alison Sanderson Self - patient is the insured Medical (General) History Medical History History ICD Code Esophageal reflux 530.81 11/28/2019 Echocardiogram: L VEF 60-65%, no diastolic dysfunction, right ventricle normal in size and function. Surgical History Surgery Date(Month/Year) Removal of Fibroma OD (Dr. Todd velazquez) 01/11/2021 NEVUS RIGHT FACE 02/2004 [facility] Appendectomy
== END 2025-02-23 11:18 | disposition home or self-care (01) ==
LOC: HO.HMCC 10:40
PROVIDERS: PCP Internal Medicine; Visit Provider Internal Medicine
DX: E66.3 Overweight (principal)